=== PATIENT | female | born 1995 | race Caucasian/White ===

== ENCOUNTER 2021-01-28 09:17 | Emergency (ER) | payer OTHER ==
[2021-01-28 09:25] VITALS: BP 117/66
--- NOTE | 2021-01-28 09:32 | ED Physician Documentation ---
PD HPI HEENT - Stated complaint Stated Complaint: RT EAR PX - Chief complaint Chief Complaint: Heent - History obtained from History obtained from: Patient - History of Present Illness Timing - onset: Yesterday Timing - duration: Days (1-2) Timing - details: Gradual onset, Still present Location: Left ear Worsens: Swalllowing, Position (lying on right side) Associated symptoms: No: Fever, Congestion, Facial swelling Similar symptoms before: Has not had sx before Review of Systems Constitutional: denies: Fever, Chills Ears: reports: Ear pain. denies: Drainage/discharge, Tinnitus/ringing, Foreign body Nose: reports: Congestion. denies: Rhinorrhea / runny nose Throat: denies: Sore throat Respiratory: denies: Dyspnea PD PAST MEDICAL HISTORY - Past Medical History Cardiovascular: None Respiratory: None Endocrine/Autoimmune: None HEENT: None - Present Medications Home Medications: Ambulatory Orders Medication Instructions Recorded Confirmed Amoxicillin 500 mg PO TID #18 cap 01/28/21 Cetirizine [ZyrTEC] 10 mg PO DAILY #15 tablet 01/28/21 dexAMETHasone [Decadron] 4 mg PO DAILY #5 tablet 01/28/21 - Allergies Allergies/Adverse Reactions: Allergies Allergy/AdvReac Type Severity Reaction Status Date / Time No Known Drug Allergies Allergy Verified 01/28/21 09:25 PD ED PE NORMAL - Vitals Vital signs reviewed: Yes - General General: Alert and oriented X 3, No acute distress, Well developed/nourished - HEENT HEENT: Moist mucous membranes, Pharynx benign. No: Ears normal (left is normal canal and TM; right showing normal canal. Left TM with redness and distorted landmarks. No perforation nor bleeding. ) - Neck Neck: Supple, no meningeal sign, No adenopathy, No bruit - Derm Derm: Normal color, Warm and dry, No rash - Neuro Neuro: Alert and oriented X 3, No motor deficit, Normal speech Results - Vitals Vitals: Oxygen O2 Source Room air Departure - Departure Disposition: 01 Home, Self Care Clinical Impression: Otitis media, acute Qualifiers: Otitis media type: suppurative Laterality: right Recurrence: non-recurrent Spontaneous tympanic membrane rupture: without spontaneous rupture Qualified Code(s): H66.001 - Acute suppurative otitis media without spontaneous rupture of ear drum, right ear Condition: Stable Record reviewed to determine appropriate education?: Yes Instructions: ED Otitis Media Acute Adult Follow-Up: KAYLIN PEREZ MD [Primary Care Provider] - Prescriptions: Amoxicillin 500 mg PO TID #18 cap dexAMETHasone [Decadron] 4 mg PO DAILY #5 tablet Cetirizine [ZyrTEC] 10 mg PO DAILY #15 tablet Comments: Amoxicillin 3 times a day for the next 6 days for ear infection. We will also treat with anti-inflammatories and antihistamines presuming some fluid collection or poor drainage from the middle ear allowing for the infection. Add Tylenol or ibuprofen if needed for pains. Recheck if not improved well over the next day or 2 and resolved by 3 to 5 days. Discharge Date/Time: 01/28/21 10:43
[2021-01-28] MEDS ORDERED: CHERRY SYRUP 10 ML UDC PO ONE (09:46)
[2021-01-28] MEDS ORDERED: DEXAMETHASONE 10 MG/ML VIAL PO STA (09:46)
[2021-01-28] MEDS ORDERED: HYDROcod/ACETAM 5/325 MG TABLET PO STA (09:46)
[2021-01-28] MEDS ORDERED: CETIRIZINE 10 MG TABLET PO STA (09:46)
[2021-01-28] MEDS ORDERED: AMOXICILLIN 250 MG CAPSULE PO STA (09:46)
== END 2021-01-28 10:43 | disposition home or self-care (01) ==
LOC: ED 09:17
DX: H66.001 Acute suppurative otitis media without spontaneous rupture of ear drum, right ear (principal)
CPT/HCPCS: 99283; A9270

== ENCOUNTER 2023-02-22 16:09 | Outpatient (CLI) | payer OTHER ==
[2023-02-22 17:18] LABS: ALBUMIN 4.5 g/dL (3.2-5.5); ALBUMIN/GLOBULIN RATIO 1.6 (1.0-2.2); BILIRUBIN,TOTAL 0.4 mg/dL (0.2-1.0); CALCIUM 9.7 mg/dL (8.5-10.3); CREATININE 0.6 mg/dL (0.6-1.3); POTASSIUM 3.4 mmol/L (3.5-4.5); TOTAL PROTEIN 7.3 g/dL (6.4-8.9)
--- NOTE | 2023-02-22 17:29 | XRAY Report ---
PROCEDURE: Abdomen 1 View X-Ray INDICATIONS: CHOLECYSTITIS TECHNIQUE: One view of the abdomen acquired. COMPARISON: None. FINDINGS: Surgical changes and devices: A biliary stent is noted in right upper quadrant. Bowel: Bowel gas pattern is is nonobstructive. Fecal stasis in the colon is seen extending to rectum . Soft tissues: No suspicious abdominal calcifications. Visualized solid organ contours appear normal in size. Bones: No suspicious bony lesions. IMPRESSION: Biliary stent in place. No bowel obstruction or gross free air. Mild to moderate constipation. Reviewed by: Vance Guevara MD on 02/22/2023 5:27 PM PDT Approved by: Vance Guevara MD on 02/22/2023 5:27 PM PDT Station ID: [id number]
== END 2023-02-22 16:10 | disposition home or self-care (01) ==
LOC: DI 16:09
PROVIDERS: ATTEND Surgery
DX: K81.9 Cholecystitis, unspecified (principal); K59.00 Constipation, unspecified; Z96.89 Presence of other specified functional implants
CPT/HCPCS: 36415; 80053

== ENCOUNTER 2023-02-25 10:17 | Day surgery (SDC) | payer OTHER ==
[2023-02-25] MEDS ORDERED: LACTATED RINGERS 1,000 ML IV ONE (10:28)
[2023-02-25] MEDS ORDERED: ceFAZolin 2 GM VIAL ONE (10:29)
[2023-02-25 10:45] LABS: HCG UR QUAL NEGATIVE
--- NOTE | 2023-02-25 11:55 | ANESTHESIA ---
Pre-Anesthesia VS, & Labs - Diagnosis history of CBD stone, cholelithiasis - Procedure lap jane Vital Signs: Temp Pulse Resp BP Pulse Ox O2 Flow Rate 36 C L 78 17 113/63 97 02/25/23 10:28 02/25/23 10:28 02/25/23 10:28 02/25/23 10:28 02/25/23 10:28 Height: 5 ft 5 in Weight (kg): 78.2 kg Body Mass Index: 28.7 BMI Classification: Overweight - NPO >8 hours - Is Patient ?: No Home Medications and Allergies Home Medications: Ambulatory Orders Sertraline [Zoloft] 50 mg PO DAILY 02/23/23 Sertraline [Zoloft] 50 mg PO DAILY 02/23/23 Allergies/Adverse Reactions: Allergies Allergy/AdvReac Type Severity Reaction Status Date / Time No Known Drug Allergies Allergy Verified 02/23/23 09:45 Anes History & Medical History - Anesthetic History Family history of Anesthesia Complications: Denies Family history of Malignant Hyperthermia: Denies - Medical History Cardiovascular: reports: None Pulmonary: reports: None Gastrointestinal: reports: Cholelithiasis Urinary: reports: None Neuro: reports: None Musculoskeletal: reports: None Endocrine/Autoimmune: reports: None Skin: reports: None Smoking Status: Never smoker Psychosocial: reports: No issues indicated History of Cancer?: No - Surgical History General: reports: Other Exam General: Alert, Oriented x3, Cooperative, No acute distress Dental: WNL Mouth Openin Fingerbreadth Neck Mobility: Normal Mallampati classification: III Thyromental Distance: 4-6 cm Mental/Cognitive Status: Alert/Oriented X3, Normal for patient Plan Anesthesia Type: General Consent for Procedure(s) Verified and Reviewed: Yes Code Status: Attempt Resuscitation ASA classification: 2-Mild systemic disease Is this case an emergency?: No
[2023-02-25] MEDS ORDERED: ROCURONIUM 50 MG/5 ML VIAL ONE (12:05)
[2023-02-25] MEDS ORDERED: BUPIVACAINE 0.25% PF 30 ML VIAL ONE (12:05)
[2023-02-25] MEDS ORDERED: fentaNYL 100 MCG/2 ML VIAL ONE ×2 (12:05→12:49)
[2023-02-25] MEDS ORDERED: PROPOFOL 200 MG/20 ML VIAL IVP ONE (12:05)
[2023-02-25] MEDS ORDERED: MIDAZOLAM 2 MG/2 ML VIAL ONE (12:05)
[2023-02-25] MEDS ORDERED: BUPIVACAINE 0.25% PF 30 ML VIAL SUBQ ONE ×2 (12:35)
[2023-02-25] MEDS ORDERED: DEXAMETHASONE 4 MG/ML VIAL ONE (12:36)
[2023-02-25] MEDS ORDERED: ONDANSETRON 4 MG/2 ML VIAL ONE ×2 (12:36→15:47)
[2023-02-25] MEDS ORDERED: NEOSTIGMINE 1 MG/1 ML 10 ML MDV ONE (13:25)
[2023-02-25] MEDS ORDERED: GLYCOPYRROLATE 1 MG/5 ML VIAL ONE (13:25)
[2023-02-25] MEDS ORDERED: KETOROLAC 30 MG/ML VIAL ONE (13:26)
[2023-02-25] MEDS ORDERED: HYDROmorphone 1 MG/ML CARPUJECT ONE (13:33)
[2023-02-25] MEDS ORDERED: LACTATED RINGERS 850 ML IV ONE (13:53)
[2023-02-25] MEDS ORDERED: fentaNYL 100 MCG/2 ML VIAL IVP PRN (14:13)
[2023-02-25] MEDS ORDERED: HYDROmorphone 0.5 MG/0.5 ML SYRINGE IVP PRN (14:13)
[2023-02-25] MEDS ORDERED: NALOXONE 0.4 MG/ML VIAL IVP PRN (14:13)
[2023-02-25] MEDS ORDERED: MORPHINE 2 MG/ML CARPUJECT IVP PRN (14:13)
[2023-02-25] MEDS ORDERED: ONDANSETRON 4 MG/2 ML VIAL IVP PRN ×2 (14:13→14:19)
[2023-02-25] MEDS ORDERED: ATROPINE ABBOJECT 1 MG/10 ML SYRINGE IVP PRN (14:13)
[2023-02-25] MEDS ORDERED: HYDROcod/ACETAM 5/325 MG TABLET PO PRN (14:19)
--- NOTE | 2023-02-25 14:26 | OPERATIVE REPORT ---
Operative Report - General Procedure Date: 02/25/23 Planned Procedure: lap jane Pre-Op Diagnosis: chronic cholecystitis and history choledocholithiasis Procedure Performed: lap jane Post Op Diagnosis: same - Procedure Note Primary Surgeon: destiny silver Anesthesia Technique: General ET tube, Local Pathology: gallbladder Estimated Blood Loss (mL): 2 Drain/Tube Type: Other (none) Indications: gallbladder pain Findings: distended/ tight gallbladder Complications: none - Other Other Information/Narrative: The patient was properly identified, brought to the operating room and placed in supine position. Sequential compression devices were placed. General endotracheal anesthesia was induced. The patient was prepped and draped in a sterile fashion and given preoperative antibiotics. Local anesthetic was given to incision areas. An incision was made in the periumbilical area. Dissection proceeded down to fascia. The fascia was incised lifted upwards and abdomen entered with a Veress needle. CO2 was insufflated to a pressure of 15. An 11 mm trocar followed by a 30 degree scope was placed. There was no evidence of injury from Veress needle or trocar placement. Under direct vision 2 5 mm trochars were placed in the right upper quadrant and an 11 mm trocar was placed in the epigastrium. Body of the gallbladder was retracted anterior. Lateral attachments were partially taken down further mobilizing the gallbladder more anterior and away from the duodenum. The infundibulum of the gallbladder was then retracted right lateral and caudad. With minimal use of cautery a large bare cystic plate area or window was carefully created. The cystic duct was inspected from right lateral and left lateral positions. [] The cystic duct was then clipped at the gallbladder and 3 times slightly proximal and sharply divided. The anterior and posterior cystic artery was clipped at the gallbladder and then 2 times slightly proximal and sharply divided. The gallbladder was mobilized off from the bed of the liver with hook cautery. The gallbladder was placed in Endo Catch bag and brought out through the epigastric trocar site. Hemostasis was assured. Trochars were removed under direct vision. Fascia at the larger trocar sites was closed with [id number] are running 0 Vicryl suture. Subcutaneous tissue was irrigated and skin closed with interrupted 4-0 Monocryl. Dressings were applied. Patient tolerated the procedure well was awakened and brought to recovery in good condition.
[2023-02-25] MEDS ORDERED: LACTATED RINGERS 1,000 ML IV SCH (15:00)
[2023-02-25] MEDS ORDERED: HYDROcod/ACETAM 5/325 MG TABLET ONE (16:00)
[2023-02-25 16:11] VITALS: BP 116/69; O2SAT 97
--- NOTE | 2023-02-25 16:14 | ANESTHESIA POST OP EVALUATION ---
Anesthesia Post Eval - Post Anesthesia Eval Vitals: Last Vital Signs Temp 36.1 C L 02/25/23 16:04 Pulse 73 02/25/23 16:04 Resp 15 02/25/23 16:04 BP 116/69 02/25/23 16:04 Pulse Ox 97 02/25/23 16:04 O2 Flow Rate CV Function Including HR & BP: Stable Pain Control: Satisfactory Nausea & Vomiting: Negative Mental Status: Baseline Respiratory Status: Airway Patent Hydration Status: Satisfactory Anesthesia Complications: None
== END 2023-02-25 10:18 | disposition home or self-care (01) ==
LOC: SDS 10:17
PROVIDERS: ATTEND Surgery
PROC: 0FT44ZZ Resection of Gallbladder, Percutaneous Endoscopic Approach (ICD-10-PCS; principal; 2023-02-25 12:00)
DX: K80.10 Calculus of gallbladder with chronic cholecystitis without obstruction (principal); Z32.02 Encounter for pregnancy test, result negative
CPT/HCPCS: 47562; 81025; A9270; J1170; J7120

== ENCOUNTER 2023-04-20 15:35 | Emergency (ER) | payer OTHER ==
[2023-04-20 16:16] LABS: BILIRUBIN,URINE NEGATIVE (NEGATIVE); GLUCOSE, URINE (UA) NEGATIVE (NEGATIVE); KETONES,URINE (UA) NEGATIVE (NEGATIVE); LEUKOCYTE ESTERASE, URINE NEGATIVE (NEGATIVE); NITRITE,URINE NEGATIVE (NEGATIVE); OCCULT BLOOD,URINE LARGE (NEGATIVE); PROTEIN,URINE NEGATIVE (NEGATIVE); UROBILINOGEN,URINE 0.2 (NORMAL) E.U./dL (NORMAL)
[2023-04-20 16:19] LABS: CLARITY,URINE CLEAR (CLEAR); HCG UR QUAL NEGATIVE
[2023-04-20 16:21] LABS: BASOPHILS # (AUTO) 0.1 10^3/uL (0.0-0.1); BASOPHILS % (AUTO) 0.7 %; EOSINOPHILS # (AUTO) 0.1 10^3/uL (0.0-0.7); EOSINOPHILS % (AUTO) 1.3 %; HCT - HEMATOCRIT 41.2 % (37.0-47.0); HGB - HEMOGLOBIN 13.6 g/dL (12.0-16.0); LYMPHOCYTES # (AUTO) 2.3 10^3/uL (1.5-3.5); LYMPHOCYTES % (AUTO) 27.8 %; MEAN CORPUSCULAR HEMOGLOBIN 29.2 pg (27.0-31.0); MEAN CORPUSCULAR VOLUME 88.6 fL (81.0-99.0); MEAN PLATELET VOLUME 9.4 fL (7.9-10.8); MONOCYTES # (AUTO) 0.7 10^3/uL (0.0-1.0); MONOCYTES % (AUTO) 8.4 %; NEUTROPHILS # (AUTO) 5.1 10^3/uL (1.5-6.6); NEUTROPHILS % (AUTO) 61.6 %; PLT - PLATELET COUNT 372 10^3/uL (130-450); RED BLOOD COUNT 4.65 10^6/uL (4.20-5.40); RED CELL DISTRIBUTION WIDTH 12.5 % (12.0-15.0); WHITE BLOOD COUNT 8.3 x10^3/uL (4.8-10.8)
[2023-04-20 16:29] LABS: BACTERIA,URINE Few /HPF (None Seen); SQUAMOUS EPITHELIAL CELL,UR RARE Squamous (<= Few); WBC,URINE 0-3 /HPF (0-5)
[2023-04-20 16:33] LABS: ALBUMIN 4.5 g/dL (3.2-5.5); ALBUMIN/GLOBULIN RATIO 1.6 (1.0-2.2); BILIRUBIN,TOTAL 0.5 mg/dL (0.2-1.0); CALCIUM 9.4 mg/dL (8.5-10.3); CREATININE 0.6 mg/dL (0.6-1.3); POTASSIUM 3.4 mmol/L (3.5-4.5); TOTAL PROTEIN 7.4 g/dL (6.4-8.9)
[2023-04-20] MEDS ORDERED: FAMOTIDINE 20 MG TABLET PO STA (16:49)
[2023-04-20] MEDS ORDERED: SUCRALFATE 1 GM/10 ML UDC PO STA (16:49)
[2023-04-20] MEDS ORDERED: MAG HYDROX/AL HYDROX/SIMETH 30 ML UDC PO STA (16:49)
[2023-04-20] MEDS ORDERED: LIDOCAINE VISCOUS 2% 15 ML ORAL SYRINGE MM STA (16:49)
--- NOTE | 2023-04-20 16:57 | ED Physician Documentation ---
History of Present Illness - Stated complaint Stated Complaint: UPPER ABD PX/UPPER BACK PX - Chief complaint Chief Complaint: Abd Pain - History obtained from History obtained from: Patient - History of Present Illness Timing: How many days ago (2) Pain level max: 8 Pain level now: 8 - Additonal information Additional information: Patient is a 27-year-old female who presents to the emergency department stating that she has had epigastric abdominal pain for the past 2 days since an endoscopic biliary stent removal. This was done at [facility]. She does not know what service, or which physician removed the stent. No fevers. No chills. No nausea or vomiting. She took a dose of Motrin without relief. She had a cholecystectomy in February. The biliary stent was placed in [facility] in December. Patient states that she developed pain immediately after the procedure and has had continued pain since that time. Nothing makes it better or worse. Review of Systems Constitutional: denies: Fever, Chills Respiratory: denies: Cough GI: denies: Nausea, Vomiting, Constipation, Diarrhea, Hematemesis, Bloody / black stool : denies: Dysuria, Frequency, Hesitancy Skin: denies: Rash Musculoskeletal: denies: Neck pain, Back pain Neurologic: denies: Headache PD PAST MEDICAL HISTORY - Past Medical History Cardiovascular: None Respiratory: None Neuro: None Endocrine/Autoimmune: None GI: Cholelithiasis : None HEENT: Chronic vision loss Psych: Depression, Anxiety, Panic attacks Musculoskeletal: None Derm: None - Past Surgical History General: Other - Present Medications Home Medications: Ambulatory Orders Medication Instructions Recorded Confirmed Sertraline [Zoloft] 50 mg PO DAILY 02/23/23 02/25/23 HYDROcod/ACETAM 5/325 [[place] 5/325] 1 - 2 ea PO Q6H PRN #14 tablet 04/20/23 Ondansetron Odt [Zofran] 4 mg TL Q6H PRN #10 tablet 04/20/23 - Allergies Allergies/Adverse Reactions: Allergies Allergy/AdvReac Type Severity Reaction Status Date / Time No Known Drug Allergies Allergy Verified 04/20/23 15:52 - Social History Smoking Status: Never smoker PD ED PE NORMAL - Vitals Vital signs reviewed: Yes - General General: Alert and oriented X 3, No acute distress - HEENT HEENT: Moist mucous membranes - Neck Neck: Supple, no meningeal sign - Cardiac Cardiac: RRR, Strong equal pulses - Respiratory Respiratory: No respiratory distress, Clear bilaterally - Abdomen Abdomen: Soft, Non distended, Other (Tender palpation epigastric. No peritoneal signs.) - Back Back: No CVA TTP, No spinal TTP - Derm Derm: Warm and dry - Neuro Neuro: Alert and oriented X 3 - Psych Psych: Normal mood, Normal affect Results - Vitals Vitals: Vital Signs - 24 hr 04/20/23 04/20/23 04/20/23 15:45 18:11 19:18 Temperature 37.1 C 36.5 C Heart Rate 71 74 73 Respiratory 18 18 17 Rate Blood Pressure 111/58 L 109/70 127/85 H O2 Saturation 99 100 100 04/20/23 19:26 Temperature 37 C Heart Rate 82 Respiratory 17 Rate Blood Pressure 125/75 O2 Saturation 100 Oxygen O2 Source Room air - Labs Labs: Laboratory Tests 04/20/23 04/20/23 04/20/23 15:50 16:15 16:15 WBC 8.3 RBC 4.65 Hgb 13.6 Hct 41.2 MCV 88.6 MCH 29.2 MCHC 33.0 RDW 12.5 Plt Count 372 MPV 9.4 Neut # (Auto) 5.1 Lymph # (Auto) 2.3 [place] # (Auto) 0.7 Eos # (Auto) 0.1 Baso # (Auto) 0.1 Absolute Nucleated RBC 0.00 Nucleated RBC % 0.0 Sodium 139 Potassium 3.4 L Chloride 104 Carbon Dioxide 28 Anion Gap 7.0 BUN 9 Creatinine 0.6 Estimated GFR (MDRD) 122 Glucose 101 Calcium 9.4 Total Bilirubin 0.5 AST 32 ALT 52 Alkaline Phosphatase 68 Total Protein 7.4 Albumin 4.5 Globulin 2.9 Albumin/Globulin Ratio 1.6 Lipase 51 Urine Color YELLOW Urine Clarity CLEAR Urine pH 7.0 Ur Specific [place] 1.010 Urine Protein NEGATIVE Urine Glucose (UA) NEGATIVE Urine Ketones NEGATIVE Urine Occult Blood LARGE H Urine Nitrite NEGATIVE Urine Bilirubin NEGATIVE Urine Urobilinogen 0.2 (NORMAL) Ur Leukocyte Esterase NEGATIVE Urine RBC 11-25 H Urine WBC 0-3 Ur Squamous Epith Cells RARE Squamous Urine Bacteria Few Ur Microscopic Review INDICATED Urine Culture Comments NOT INDICATED Urine HCG, Qual NEGATIVE - Rads (name of study) CT abdomen pelvis Relevant Findings:: Final report received, See rad report PD Medical Decision Making - ED course Complexity details: reviewed results, re-evaluated patient, considered differential, d/w patient ED course: 27-year-old female 2 days status post a biliary stent removal. She is having epigastric abdominal pain. No acute findings on laboratory testing. She does have a small amount of peripancreatic edema on CT scan. We will treat as pancreatitis. Patient is well-appearing, nontoxic. Afebrile. Tolerating p.o. without difficulty. No evidence of perforation, abscess. Patient counseled regarding signs and symptoms for which I believe and urgent re-evaluation would be necessary. Patient with good understanding of and agreement to plan and is comfortable going home at this time This document was made in part using voice recognition software. While efforts are made to proofread this document, sound alike and grammatical errors may occur. Departure - Departure Disposition: 01 Home, Self Care Clinical Impression: Pancreatitis Qualifiers: Chronicity: acute Pancreatitis type: unspecified pancreatitis type Acute pancreatitis complication: no infection or necrosis Qualified Code(s): K85.90 - Acute pancreatitis without necrosis or infection, unspecified Condition: Good Instructions: ED Pancreatitis Follow-Up: CHARLES KILGORE MD [Primary Care Provider] - Within 3 Days Prescriptions: HYDROcod/ACETAM 5/325 [[place] 5/325] 1 - 2 ea PO Q6H PRN #14 tablet PRN Reason: Pain Ondansetron Odt [Zofran] 4 mg TL Q6H PRN #10 tablet PRN Reason: Nausea / Vomiting Comments: Your prescriptions were sent to [facility] in [place]. Please follow-up with your doctor for further care. Please return if you worsen. Your CT scan shows a small amount of edema next to your pancreas, this could be causing a mild pancreatitis which can cause pain. This should improve over the next few days. I would recommend a liquid diet and staying away from any alcohol. I am prescribing a short course of narcotic pain medication for you. These are potentially dangerous and addictive medications that should be used carefully. These medications may constipate you. Take an [id number] stool softener (docusate) twice daily with plenty of water while taking these medications. If you go 24 hours without a bowel movement, take [id number] miralax, per package instructions. Do not drink or drive while taking these medications. If you received narcotic or sedating medications while in the emergency department, do not drive for 24 hours. Store this medication in a safe, secure place and out of reach of children. It is a violation of federal law to give or sell this medication to another person or to use in a manner other than prescribed. The ED will not refill narcotic prescriptions, including prescriptions lost or stolen. To dispose of unwanted medications: 1. [facility] at [address] in [place] has a medication drop box. They accept prescription medications (in pill form) Tuesday through Tuesday 9:00 a.m. to 5:00 p.m. 2. The [facility] [employer] accepts prescription medications (in pill form only) for disposal year round. Call for more information. 3. Contact the [facility] for the next [facility] sponsored prescription drug collection event. , [phone], or [phone]; PROCEDURE: ABDOMEN/PELVIS W INDICATIONS: epigastric pain s/p biliary stent removal 2 days CONTRAST: 100mL Omni 300 TECHNIQUE: After the administration of IV and oral contrast, 5 mm thick sections acquired from the diaphragms to the symphysis. 5 mm thick coronal and sagittal reformats were acquired. For radiation dose reduction, the following was used: automated exposure control, adjustment of mA and/or kV according to patient size. COMPARISON: X-ray abdomen pelvis 02/22/2023 FINDINGS: Image quality: Excellent. Lung bases and heart: Unremarkable. Liver: No solid mass. Gallbladder and biliary tree: Removed Spleen: No splenomegaly. Pancreas: No pancreatic ductal dilation. There is a trace appearance of stranding within the mesenteric fat along the inferior surface of the pancreas. Adrenals: No adrenal nodule. Kidneys and ureters: No hydronephrosis. No renal cystic lesion which requires follow up. No solid mass. Bowel and peritoneum: No bowel distension. No pathologic free fluid. Lymph nodes: No central or retroperitoneal adenopathy. Vessels: No infrarenal aortic aneurysm. PELVIS Reproductive organs: Unremarkable. Bladder: No abnormal wall thickening, accounting for underdistension. Pelvic lymph nodes: No pelvic adenopathy by size criteria. Bones: No aggressive osseous abnormality. Other: No significant ventral or inguinal hernia. IMPRESSION: Very minimal fat stranding along the inferior aspect of the pancreas without gross pancreatic edema. No ductal dilation. Early inflammation cannot be excluded. Forms: PCP List Discharge Date/Time: 04/20/23 19:26
[2023-04-20] MEDS ORDERED: LIDOCAINE VISCOUS 2% 15 ML UDC MM STA (17:04)
[2023-04-20] MEDS ORDERED: iohexoL-300 100 ML VIAL IVP ONE (17:58)
[2023-04-20 18:18] VITALS: O2SAT 100
--- NOTE | 2023-04-20 18:25 | CT Report ---
PROCEDURE: ABDOMEN/PELVIS W INDICATIONS: epigastric pain s/p biliary stent removal 2 days CONTRAST: 100mL Omni 300 TECHNIQUE: After the administration of IV and oral contrast, 5 mm thick sections acquired from the diaphragms to the symphysis. 5 mm thick coronal and sagittal reformats were acquired. For radiation dose reducti on, the following was used: automated exposure control, adjustment of mA and/or kV according to rock ent size. COMPARISON: X-ray abdomen pelvis 02/22/2023 FINDINGS: Image quality: Excellent. Lung bases and heart: Unremarkable. Liver: No solid mass. Gallbladder and biliary tree: Removed Spleen: No splenomegaly. Pancreas: No pancreatic ductal dilation. There is a trace appearance of stranding within the mesenter ic fat along the inferior surface of the pancreas. Adrenals: No adrenal nodule. Kidneys and ureters: No hydronephrosis. No renal cystic lesion which requires follow up. No solid mas s. Bowel and peritoneum: No bowel distension. No pathologic free fluid. Lymph nodes: No central or retroperitoneal adenopathy. Vessels: No infrarenal aortic aneurysm. PELVIS Reproductive organs: Unremarkable. Bladder: No abnormal wall thickening, accounting for underdistension. Pelvic lymph nodes: No pelvic adenopathy by size criteria. Bones: No aggressive osseous abnormality. Other: No significant ventral or inguinal hernia. IMPRESSION: Very minimal fat stranding along the inferior aspect of the pancreas without gross pancreatic edema. No ductal dilation. Early inflammation cannot be excluded. Reviewed by: Kandi Agudelo MD on 04/20/2023 6:24 PM PDT Approved by: Kandi Agudelo MD on 04/20/2023 6:24 PM PDT Station ID: [id number]
[2023-04-20] MEDS ORDERED: MORPHINE 2 MG/ML CARPUJECT IVP STA (18:26)
[2023-04-20] MEDS ORDERED: KETOROLAC 30 MG/ML VIAL IVP STA (19:01)
[2023-04-20 19:30] VITALS: BP 125/75
== END 2023-04-20 19:26 | disposition home or self-care (01) ==
LOC: ED 15:35
DX: K85.90 Acute pancreatitis without necrosis or infection, unspecified (principal)
CPT/HCPCS: 36415; 74177; 80053; 81001; 81025; 83690; 85025; 96374; 99283; 99284; A9270; Q9967; 81003; 87086